=== PATIENT | male | born 1975 | race Caucasian/White ===

== ENCOUNTER 2018-09-28 15:49 | Emergency (ER) | payer MEDICAID, OTHER ==
[~2018-09-28] VITALS: Ht 180.3 cm; Wt 100.2 kg
[2018-09-28 15:49] VITALS: BP 151/85
[2018-09-28] MEDS ORDERED: NAPR-683 PO (16:22)
[2018-09-28] MEDS ORDERED: METH4TAB2 PO (16:22)
--- NOTE | 2018-09-28 16:22 | PHYS DOC ---
Past History Past Medical History: GERD Past Surgical History: Tonsillectomy, Other Alcohol Use: None Drug Use: None Adult General Chief Complaint Chief Complaint: UPPER EXTREMITY PAIN [facility] HPI Patient is a 42 year old right handed male who presents with complaining of right upper extremity pain since June 2018 as intermittent pain that usually happens with physical activity and using his hand. Patient states he has had right arm pain that gradually extending to his right elbow and forearm and for the last few days had right wrist pain with decrease of strength of his hand without new numbness. Patient states he was seen by a new primary care physician 2 weeks ago with normal labs that his pain was not addressed. Review of Systems Review of Systems Constitutional: Denies fever or chills [] Eyes: Denies change in visual acuity, redness, or eye pain [] HENT: Denies nasal congestion or sore throat [] Respiratory: Denies cough or shortness of breath [] Cardiovascular: No additional information not addressed in HPI [] GI: Denies abdominal pain, nausea, vomiting, bloody stools or diarrhea [] : Denies dysuria or hematuria [] Musculoskeletal: Denies back pain , reports joint pain [] Integument: Denies rash or skin lesions [] Neurologic: Denies headache, focal weakness or sensory changes [] Endocrine: Denies polyuria or polydipsia [] All other systems were reviewed and found to be within normal limits, except as documented in this note. Allergies Allergies Allergies Coded Allergies Type Severity Reaction Last Updated Verified No Known Drug Allergies 09/28/18 No Physical Exam Physical Exam Constitutional: Well developed, well nourished, no acute distress, non-toxic appearance. [] HENT: Normocephalic, atraumatic Neck: Normal range of motion, no tenderness, supple, no stridor. [] Cardiovascular:Heart rate regular rhythm, no murmur [] Lungs & Thorax: Bilateral breath sounds clear to auscultation [] Extremities: Right upper extremity without deformity, edema, paresthesia, decrease of strength of right hand with painful range of motion of flexion of wrist Neurologic: Alert and oriented X 3, normal motor function, normal sensory function, no focal deficits noted. [] Psychologic: Affect normal, judgement normal, mood normal. [] Current Patient Data Vital Signs Vital Signs Date Time Temp Pulse Resp B/P (MAP) Pulse Ox O2 Delivery O2 Flow Rate FiO2 09/28/18 15:49 98.2 83 20 99 Room Air EKG EKG [] Radiology/Procedures Radiology/Procedures [] Course & Med Decision Making Course & Med Decision Making Evaluation of patient in ER showed 41-year-old male patient with chronic right upper extremity pain that gradually getting worse. Right wrist velcro splint was provided and patient instructed to quit smoking and follow up with the primary care physician for evaluation of chronic upper extremity pain that looks like a neurologic pain. Dragon Disclaimer Dragon Disclaimer This electronic medical record was generated, in whole or in part, using a voice recognition dictation system. Departure Departure: Impression: Primary Impression: Carpal tunnel syndrome on right Additional Impressions: Tobacco abuse Tobacco abuse counseling Disposition: HOME, SELF-CARE (at 1625) Condition: STABLE Referrals: PCP,[facility] (PCP) Patient Instructions: Carpal Tunnel Syndrome, Smoking Cessation, Tips For Success Additional Instructions: Apply ice on the affected area Follow-up with your primary care physician in 3-5 days Return to ER if not getting better Scripts Naproxen (NAPROSYN) 500 Mg Tablet 500 MG PO BID for pain, #20 TAB Prov: GISELL WARREN MD 09/28/18 Methylprednisolone (MEDROL) 4 Mg Tab.ds.pk 1 PKG PO UD for inflammation, #1 PKG Prov: GISELL WARREN MD 09/28/18 Problem Qualifiers GISELL WARREN MD Sep 28, 2018 16:22
== END 2018-09-28 16:31 | disposition home or self-care (01) ==
LOC: ER 15:49
DX: G56.01 Carpal tunnel syndrome, right upper limb (principal); K21.9 Gastro-esophageal reflux disease without esophagitis; Z72.0 Tobacco use; Z71.6 Tobacco abuse counseling
CPT/HCPCS: 29125; 99283

== ENCOUNTER → 2019-01-30 | Outpatient (CLI) | payer OTHER ==
[~2019-01-30] MED LIST: METH4TAB2 PO; NAPR-683 PO
--- NOTE | 2019-01-30 16:39 | RAD ---
HAND RIGHT 2V History: Right hand pain Comparison: None. Findings: 2 views of the right hand are submitted. No acute fracture or dislocation is identified. No significant erosive changes are identified. Impression: 1. No significant radiographic abnormality is identified. Electronically signed by: Je Perez MD (01/30/2019 4:36 PM) [id number]
== END | disposition home or self-care (01) ==
LOC: PMG 15:45
PROVIDERS: ATTEND Registered Nurse
DX: M79.641 Pain in right hand (principal)
CPT/HCPCS: 73120

== ENCOUNTER → 2019-07-10 | Outpatient (CLI) | payer OTHER ==
--- NOTE | 2019-07-11 09:10 | RAD ---
KNEE 3 VIEWS RIGHT Clinical Indication: Chronic right knee pain. Comparison: None. Findings: There is no acute fracture or dislocation. There is minimal medial compartment narrowing. The mineralization is normal. The patella is in anatomic position. There is no soft tissue abnormality. There is no joint effusion. IMPRESSION: No acute bone abnormality. Electronically signed by: John Boo MD (07/11/2019 9:07 AM) [id number]
--- NOTE | 2019-07-11 09:12 | RAD ---
SACRUM COCCYX 3V Clinical Indication: Tailbone injury, fell one month ago. Comparison: None. Findings: No acute displaced fracture. The sacroiliac joints are symmetric. The mineralization is normal. No diastasis of symphysis pubis. Sacrum and coccyx alignment is maintained on the lateral view. Multiple phleboliths are seen in the pelvis. IMPRESSION: No acute fracture. Electronically signed by: John Boo MD (07/11/2019 9:09 AM) [id number]
== END | disposition home or self-care (01) ==
LOC: PMG 17:38
PROVIDERS: ATTEND Registered Nurse
DX: M25.561 Pain in right knee (principal); G89.29 Other chronic pain; I87.8 Other specified disorders of veins; W19.XXXA Unspecified fall, initial encounter; Y93.89 Activity, other specified; Y92.89 Other specified places as the place of occurrence of the external cause; Y99.8 Other external cause status
CPT/HCPCS: 72220; 73562

== ENCOUNTER → 2019-12-20 | Outpatient (CLI) | payer OTHER ==
[2019-12-20 12:21] LABS: BASO # 0.1 x10^3/uL (0.0-0.2); BASO % 1 % (0-3); EOS # 0.4 x10^3/uL (0.0-0.7); EOS % 4 % (0-3); HEMATOCRIT 48.7 % (39.0-53.0); HEMOGLOBIN 16.6 g/dL (13.0-17.5); LYMPH # 2.4 x10^3/uL (1.0-4.8); LYMPH % 23 % (24-48); MEAN CORPUSCULAR HEMOGLOBIN 31 pg (25-35); MEAN CORPUSCULAR HGB CONC 34 g/dL (31-37); MEAN CORPUSCULAR VOLUME 92 fL (79-100); MONO % 9 % (0-9); NEUT # 6.6 x10^3uL (1.8-7.7); NEUT % 63 % (31-73); PLATELET COUNT 323 x10^3/uL (140-400); RED BLOOD COUNT 5.31 x10^6/uL (4.30-5.70); RED CELL DISTRIBUTION WIDTH 13.5 % (11.5-14.5); WHITE BLOOD COUNT 10.5 x10^3/uL (4.0-11.0)
[2019-12-20 12:44] LABS: ALBUMIN 3.7 g/dL (3.4-5.0); CALCIUM 9.3 mg/dL (8.5-10.1); CREATININE 0.9 mg/dL (0.7-1.3); GFR 91.3; POTASSIUM 4.4 mmol/L (3.5-5.1); TOTAL BILIRUBIN 0.2 mg/dL (0.2-1.0); TOTAL PROTEIN 7.3 g/dL (6.4-8.2); URIC ACID 5.6 mg/dL (3.5-7.2)
[2019-12-20 13:24] LABS: SEDIMENTATION RATE 10 (0-15)
[2019-12-21 02:06] LABS: RHEUMATOID FACTOR <10.0 IU/mL (0.0-13.9)
[2019-12-21 14:43] LABS: THYROID STIM HORMONE (TSH) 0.912 uIU/mL (0.358-3.740)
== END ==
LOC: LAB 10:53
PROVIDERS: ATTEND Registered Nurse
DX: Z13.6 Encounter for screening for cardiovascular disorders (principal); Z13.29 Encounter for screening for other suspected endocrine disorder; M79.89 Other specified soft tissue disorders; M25.50 Pain in unspecified joint; E55.9 Vitamin D deficiency, unspecified
CPT/HCPCS: 36415; 80053; 80061; 82306; 84443; 84550; 85025; 85651; 86038; 86431